=== PATIENT | male | born 1995 | race Caucasian/White ===

== ENCOUNTER 2018-11-15 12:32 | Emergency (ER) | payer OTHER ==
[2018-11-15] MEDS ORDERED: BUPIVACAINE 0.5% PF 10 ML VIAL SUBQ STA (13:23)
--- NOTE | 2018-11-15 13:23 | ED Physician Documentation ---
PD HPI UPPER EXT INJURY - Stated complaint Stated Complaint: LEFT FINGER INJ - Chief complaint Chief Complaint: Laceration - History obtained from History obtained from: Patient - History of Present Illness Location: Left, Finger (5th) Type of injury: Blunt / blow Where injury occurred: Work Timing - onset: Today Timing - duration: Minutes Timing - details: Abrupt onset, Still present Improved by: Rest, Immobilization Worsened by: Moving, Palpating Associated symptoms: No: Weakness, Numbness, Tingling Similar symptoms before: Has not had sx before Recently seen: Not recently seen - Additonal information Additional information: 23-year-old male was at work today when he caught his finger between a tank washer and hard object and he has avulsed the nail proximally on the fifth digit of the left hand. Review of Systems Constitutional: denies: Fever, Chills Eyes: denies: Decreased vision Ears: denies: Ear pain Nose: denies: Rhinorrhea / runny nose, Congestion Throat: denies: Sore throat Respiratory: denies: Cough GI: denies: Vomiting Skin: denies: Rash Musculoskeletal: reports: Extremity pain. denies: Neck pain, Back pain Neurologic: denies: Generalized weakness, Focal weakness, Numbness PD PAST MEDICAL HISTORY - Present Medications Home Medications: Ambulatory Orders Medication Instructions Recorded Confirmed No Known Home Medications 11/15/18 11/15/18 - Allergies Allergies/Adverse Reactions: Allergies Allergy/AdvReac Type Severity Reaction Status Date / Time azithromycin Allergy Hives Verified 11/15/18 12:43 PD ED PE NORMAL - Vitals Vital signs reviewed: Yes (hypertensive ) - General General: Alert and oriented X 3, No acute distress, Well developed/nourished - HEENT HEENT: Atraumatic, PERRL, EOMI - Respiratory Respiratory: No respiratory distress - Derm Derm: Normal color, Warm and dry, No rash - Extremities Extremities: Other (The 5th digit on the left hand has the nail avulsed proximally and a laceration to the pad that is about 5mm in size. 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, No motor deficit, No sensory deficit, Normal speech Eye Opening: Spontaneous Motor: Obeys Commands Verbal: Oriented GCS Score: 15 - Psych Psych: Normal mood, Normal affect Results - Vitals Vitals: Vital Signs - 24 hr 11/15/18 12:42 Temperature 36.4 C L Heart Rate 95 Respiratory 18 Rate Blood Pressure 148/86 H O2 Saturation 99 Oxygen O2 Source Room air - Rads (name of study) fingers Radiology: Prelim report reviewed (Impression: Normal digit radiography.), EMP read indepedently, See rad report Procedures - Laceration (location) left 5th finger Length in cm: 2 Wound type: Irregular, Clean Neurovascular status: Sensory intact, Motor intact, Vascular intact Anesthesia: Marcaine 0.5%, OTH (digital block) Wound Preparation: Hibiclens, Irrigated copiously NS, Wound explored, To the base Deep layer closure: Vicryl, size #-0 - enter number (5-0), # sutures - enter number (3), Other (to the distal nailbed) Skin layer closure: Nylon, Interrupted, Size #-0 - enter number (5-0), Sutures - enter # (2), Other (to the volar fingertip) Other: Patient tolerated well, No complications, Neurovascular intact, Dressing applied, Tetanus booster given Complexity: Simple PD MEDICAL DECISION MAKING - ED course Complexity details: reviewed results, re-evaluated patient, considered differential, d/w patient ED course: 23-year-old male with a crush injury and nail avulsion to the left fifth digit on the left hand has no evidence of fracture on x-ray examination the nail was removed there is a laceration through the nail bed this is repaired with 5-0 Vicryl there is a separate laceration to the skin on the volar surface of the distal flange and is repaired with 5-0 nylon. The patient is given a tetanus booster and the disposable instruments were dispensed to the patient for suture removal in 7-10 days. Departure - Departure Disposition: 01 Home, Self Care Clinical Impression: Nailbed laceration, finger Qualifiers: Encounter type: initial encounter Qualified Code(s): S61.319A - Laceration without foreign body of unspecified finger with damage to nail, initial encounte r Finger laceration Qualifiers: Encounter type: initial encounter Finger: little finger Damage to nail status: with damage Foreign body presence: without foreign body Laterality: left Qualified Code(s): S61.317A - Laceration without foreign body of left little finger with damage to nail, initial encounter Condition: Stable Instructions: ED Laceration Hand, ED Avulsion Nail Complete Follow-Up: [facility] [Provider Group] Comments: The black sutures should be removed in 7-10 days.
--- NOTE | 2018-11-15 14:32 | XRAY Report ---
Reason: 5th digit distal crush injury Procedure Date: 11/15/2018 Accession Number: [id number] / [id number] Procedure: XR - Finger(s) LT CPT Code: FULL RESULT: EXAM: LEFT FIFTH DIGIT RADIOGRAPHY EXAM DATE: 11/15/2018 01:48 PM. CLINICAL HISTORY: 5th digit distal crush injury. COMPARISON: None. TECHNIQUE: 3 views. FINDINGS: Bones: Normal. No fracture or bone lesion. Joints: Normal. No subluxations. Soft Tissues: Normal. No soft tissue swelling. IMPRESSION: Normal digit radiography. [facility]
[2018-11-15] MEDS ORDERED: TETANUS/DIPHTHERIA/PERTUSSIS 0.5 ML SYRINGE IM ONE (15:18)
[2018-11-15 15:38] VITALS: BP 129/63
== END 2018-11-15 15:38 | disposition home or self-care (01) ==
LOC: ED 12:32
DX: S61.317A Laceration without foreign body of left little finger with damage to nail, initial encounter (principal); W31.89XA Contact with other specified machinery, initial encounter; Y99.0 Civilian activity done for income or pay; Z23 Encounter for immunization
CPT/HCPCS: 12001; 73140; 90471; 99283